=== PATIENT | female | born 1935 | race Caucasian/White ===

== ENCOUNTER 2016-12-26 11:48 | Emergency (ER) | payer MEDICARE, OTHER ==
[~2016-12-26] VITALS: Ht 165.1 cm; Wt 50.0 kg
[2016-12-26 11:55] VITALS: BP 140/70; PULSE 77; RESP 15; TEMP 97.8; O2SAT 100
--- NOTE | 2016-12-26 13:19 | RADHPO ---
EXAM DATE/TIME: 12/26/2016 12:21 [facility] COMPARISON: No previous studies available for comparison. INDICATIONS : Tripped and fell into a chair last night, pain and bruising right 5th digit. MEDICAL HISTORY : None. SURGICAL HISTORY : None. ENCOUNTER: Initial ACUITY: 2 days PAIN SCORE: 4/10 LOCATION: Right 1st digit FINDINGS: There is a fracture base of the proximal phalanx of the 1st digit does extend into articular. No oth er fractures are appreciated. CONCLUSION: Fracture base of the thumb. Poncho Millan MD FACR on December 26, 2016 at 13:04 Board Certified Radiologist. This report was verified electronically.
[2016-12-26] MEDS ORDERED: LOVA40TA PO (14:52)
[2016-12-26] MEDS ORDERED: ASPI1TAB69 PO (14:52)
[2016-12-26] MEDS ORDERED: LISI-515 PO (14:52)
[2016-12-26] MEDS ORDERED: AMBI10TA PO (14:52)
--- NOTE | 2016-12-26 15:18 | PD ---
HPI Chief Complaint: Injury Time Seen by Provider: 14:45 Travel History International Travel<30 days: No Contact w/Intl Traveler<30days: No Traveled to known affect area: No History of Present Illness HPI Patient is an 81-year-old female presenting to the emergency department for evaluation of right thumb pain. Patient sustained a mechanical fall yesterday when she tripped over her sneakers in her bedroom, bracing herself on a chair with her right hand. Patient also has a contusion to the left eye. Patient does take baby aspirin every other day. Denies a dizziness, headache, loss of consciousness, chest pain, shortness breath, abdominal pain. The pain in her thumb is a 5 out of 10 and describes the sore and aching. PFSH Past Medical History High Cholesterol: Yes Hypertension: Yes Medical other: Yes Tetanus Vaccination: > 5 Years Influenza Vaccination: Yes ?: Not Past Surgical History Appendectomy: Yes Hysterectomy: Yes Other Surgery: Yes (CATERACT X2, LEFT BREAST LUMPECTOMY) Social History Alcohol Use: Yes (WEEKENDS) Tobacco Use: No Substance Use: No Allergies-Medications (Allergen,Severity, Reaction): Coded Allergies: No Known Allergies (Unverified , 12/26/16) Reported Meds & Prescriptions Reported Meds & Active Scripts Active Reported Ambien (Zolpidem Tartrate) 10 Mg Tab 10 Mg PO HS PRN Lovastatin 40 Mg Tab 40 Mg PO DAILY Lisinopril 20 Mg Tab 20 Mg PO DAILY Aspirin 81 Mg Tabdr 81 Mg PO DAILY Review of Systems Except as stated in HPI: all other systems reviewed are Neg Eyes: No: Blurred Vision, Visual changes HENT: No: Headaches, Vertigo, Neck Pain Cardiovascular: No: Chest Pain or Discomfort Respiratory: No: Shortness of Breath Gastrointestinal: No: Nausea, Vomiting, Abdominal Pain Musculoskeletal: Positive: Myalgias, Edema, Pain Skin: Positive Change in Pigmentation Neurologic: No: Dizziness, Syncope, Focal Abnormalities, Change in Mentation, Sensory Disturbance Physical Exam Narrative GENERAL: [Well-developed, well-nourished, alert elderly female. Resting comfortably in no acute distress. SKIN: Focused skin assessment warm/dry. Ecchymosis noted to the left eye on the lateral aspect and on the left eyebrow. HEAD: Atraumatic. Normocephalic. EYES: Pupils equal and round. No scleral icterus. No injection or drainage. ENT: No nasal bleeding or discharge. Mucous membranes pink and moist. NECK: Trachea midline. No JVD. CARDIOVASCULAR: Regular rate and rhythm. No murmur appreciated. RESPIRATORY: No accessory muscle use. Clear to auscultation. Breath sounds equal bilaterally. GASTROINTESTINAL: Abdomen soft, non-tender, nondistended. Hepatic and splenic margins not palpable. MUSCULOSKELETAL: No obvious deformities. No clubbing. No cyanosis. Moderate edema and ecchymosis noted to the right first finger and first and second MCP. Full range of motion, positive radial pulse, brisk less than 3 second capillary refill. NEUROLOGICAL: Awake and alert. No obvious cranial nerve deficits. Motor grossly within normal limits. Normal speech. PSYCHIATRIC: Appropriate mood and affect; insight and judgment normal. Data Data Last Documented VS Vital Signs Date Time Temp Pulse Resp B/P Pulse Ox O2 Delivery O2 Flow Rate FiO2 12/26/16 11:55 97.8 77 15 140/70 100 Orders Hand, Complete ([id number]) (12/26/16 ) Ct Brain W/O Iv Contrast(Rout) (12/26/16 ) Splint Or Brace Apply/Monitor (12/26/16 14:47) Support Splint (12/26/16 14:47) Finger Splint (12/26/16 ) Sling Cradle Arm (12/26/16 ) MDM Medical Decision Making Medical Screen Exam Complete: Yes Emergency Medical Condition: Yes Interpretation(s) Vital Signs Date Time Temp Pulse Resp B/P Pulse Ox O2 Delivery O2 Flow Rate FiO2 12/26/16 11:55 97.8 77 15 140/70 100 Differential Diagnosis Concussion versus contusion versus hemorrhage versus fracture versus sprain versus strain versus dislocation versus other Narrative Course Patient is an 81-year-old female presenting to emergency evaluation of right thumb pain, it was also noted that she had a contusion to her left eye. Patient sustained a mechanical fall yesterday afternoon. She denies any headache or loss of consciousness. Imaging of the right hand shows a fracture at the base of the right thumb, it does not extend into the intra-articular space. CT scan of the brain ordered and pending. Patient is neurologically intact at this time. Finger splint and sling ordered for comfort. CT of the brain shows soft tissue swelling over the left temporal area. No acute hemorrhage or infarct noted. Patient was encouraged to rest, ice, elevate extremity. She was encouraged to keep the finger splint in place to protect her finger. She was encouraged to follow-up with her primary doctor as well. Additionally patient was encouraged to come back to the emergency immediately for any new or worsening signs or symptoms. Patient verbalized understanding of these instructions. Patient is stable for discharge. Diagnosis Primary Impression: Finger fracture, right Qualified Code: S62.609A - Finger fracture, right, closed, initial encounter Additional Impression: Contusion of head Qualified Code: S00.83XA - Contusion of other part of head, initial encounter Referrals: Primary Care Physician 3 days Patient Instructions: Contusion in Adults (ED), Facial Contusion (ED), Finger Fracture (ED), General Instructions, Head Injury (ED) Additional Instructions: Follow-up with your primary doctor Rest, ice, elevate extremity Do not drive or operate heavy machinery while taking narcotic pain medication Return to emergency department immediately for any new or worsening symptoms Med/Other Pt SpecificInfo: Prescription(s) given Scripts Tramadol 50 Mg Tab50 Mg PO Q6H PRN (PAIN) #10 TAB Ref 0 Prov:Marti Ferraro DO 12/26/16 Disposition: 01 DISCHARGE HOME Condition: Stable Ileana Garcia Dec 26, 2016 15:18
--- NOTE | 2016-12-26 15:36 | RADHPO ---
EXAM DATE/TIME: 12/26/2016 14:58 [facility] COMPARISON: No previous studies available for comparison. INDICATIONS : Trauma, fall. RADIATION DOSE: 62.43 CTDIvol (mGy) MEDICAL HISTORY : None SURGICAL HISTORY : None. ENCOUNTER: Initial ACUITY: 1 day PAIN SCALE: 4/10 LOCATION: Left cranial TECHNIQUE: Multiple contiguous axial images were obtained of the head. Using automated exposure control and adj ustment of the mA and/or kV according to patient size, radiation dose was kept as low as reasonably a chievable to obtain optimal diagnostic quality images. FINDINGS: CEREBRUM: The ventricles are normal for age. No evidence of midline shift, mass lesion, hemorrhage or acute in farction. No extra-axial fluid collections are seen. POSTERIOR FOSSA: The cerebellum and brainstem are intact. The 4th ventricle is midline. The cerebellopontine angle i s unremarkable. EXTRACRANIAL: The visualized portion of the orbits is intact. Left temporal soft tissue swelling. SKULL: The calvaria is intact. No evidence of skull fracture. CONCLUSION: 1. Left temporal soft tissue swelling. 2. No acute intracranial abnormality. Florentino Soto Jr., MD on December 26, 2016 at 15:28 Board Certified Radiologist. This report was verified electronically.
[2016-12-26] MEDS ORDERED: TRAM50TA PO (15:43)
== END 2016-12-26 16:09 | disposition home or self-care (01) ==
LOC: PHED 11:48 → PHEFT 16:09
DX: S62.511A Displaced fracture of proximal phalanx of right thumb, initial encounter for closed fracture (principal); S05.12XA Contusion of eyeball and orbital tissues, left eye, initial encounter; E78.00 Pure hypercholesterolemia, unspecified; I10 Essential (primary) hypertension; W01.190A Fall on same level from slipping, tripping and stumbling with subsequent striking against furniture, initial encounter; Y92.003 Bedroom of unspecified non-institutional (private) residence as the place of occurrence of the external cause; Z79.82 Long term (current) use of aspirin; Z79.899 Other long term (current) drug therapy
CPT/HCPCS: 29130; 70450; 73130